=== PATIENT | female | born 1990 | race Caucasian/White ===

== ENCOUNTER 2016-09-18 20:20 | Emergency (ER) | payer MEDICAID ==
--- NOTE | 2016-09-18 21:05 | EDM.PDOC ---
ED HISTORY OF PRESENT ILLNESS - General Chief Complaint: Syncope Stated Complaint: MEDICAL VIA [facility] Time Seen by Provider: 09/18/16 21:05 Source: Reports: Patient, Family History Limitations: Reports: No limitations - History of Present Illness INITIAL COMMENTS - FREE TEXT/NARRATIVE: pt was at the [facility] rest[facility]ant and she was standing and ordering and she passed out. She had not drank alot of fluids earlier in the day. She had not had the flu or FEVER EARLIER. Timing/Duration: Reports: Hour(s): Location, General: Reports: generalized, other ( pT PASSED OUT AT THE [employer]. 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: Neurological History: Reports: Headaches, chronic, Vertigo Psychiatric History: Reports: Anxiety, Panic attack Hematologic History: Reports: Anemia - Infectious Disease History Infectious Disease History: Reports: Chicken pox - Past Surgical History HEENT Surgical History: Reports: Myringotomy w tube(s) Female Surgical History: Reports: Breast biopsy, section Social & Family History - Tobacco Use Smoking Status *Q: Current Every Day Smoker Years of Tobacco use: 10 Packs/Tins Daily: 1 Used Tobacco, but Quit: No Second Hand Smoke Exposure: Yes - Caffeine Use Caffeine Use: Reports: Coffee - Alcohol Use Days Per Week of Alcohol Use: 0 Number of Drinks Per Day: 0 Total Drinks Per Week: 0 Date of Last Drink: 09/17/16 - Recreational Drug Use Recreational Drug Use: Yes Drug Use in Last 12 Months: Yes Recreational Drug Type: Reports: Marijuana/Hashish Recreational Drug Use Frequency: Monthly ED ROS GENERAL - Review of Systems Review Of Systems: See Below Constitutional: Reports: no symptoms HEENT: Reports: No symptoms Respiratory: Reports: no symptoms Cardiovascular: Reports: No symptoms Endocrine: Reports: no symptoms GI/Abdominal: Reports: No symptoms : Reports: no symptoms Musculoskeletal: Reports: no symptoms Skin: Reports: no symptoms Neurological: Reports: syncope Psychiatric: Reports: Anxiety ED EXAM, GENERAL - Physical Exam Exam: See Below Free Text/Narrative:: pt arrived with a history of being at a returant and while she was standinding to order she passed out. She had not ate or drank much during the day. Exam Limited By: No limitations General Appearance: alert, no apparent distress, anxious, other (pupils were equal and reactive. ) Ears: normal TMs Nose: normal inspection Throat/Mouth: Normal inspection Head: atraumatic Neck: normal inspection Respiratory/Chest: no respiratory distress Cardiovascular: regular rate, rhythm GI/Abdominal: soft, non tender Rectal (Female) Exam: Deferred Back Exam: normal inspection Extremities: normal inspection Neurological: alert, oriented, normal cognition, other (all limbs of normal strength. ) Course - Vital Signs Last Recorded V/S: Last Vital Signs Temp 37.3 C 09/18/16 21:20 Pulse 81 09/18/16 22:00 Resp 16 09/18/16 22:00 BP 106/63 09/18/16 22:00 Pulse Ox 98 09/18/16 22:00 Orthostatic Blood Pressure [ 117/69 Standing] Orthostatic Blood Pressure [ 112/58 Sitting] Orthostatic Blood Pressure [ 122/78 Supine] - Orders/Labs/Meds Orders: Active Orders 24 hr Category Date Time Status Cardiac Monitoring [RC] .As Directed Care 09/18/16 21:04 Active EKG Documentation Completion [RC] ASDIRECTED Care 09/18/16 21:02 Active Orthostatic Vital Signs [RC] ASDIRECTED Care 09/18/16 21:04 Active CULTURE URINE [RM] Stat Lab 09/18/16 22:03 Received EKG 12 Lead [EK] Routine Ther 09/18/16 21:02 Ordered Labs: Laboratory Tests 09/18/16 09/18/16 09/18/16 Range/Units 21:05 21:05 21:17 WBC 7.9 (4.5-11.0) K/uL RBC 4.73 (3.30-5.50) M/uL Hgb 12.4 D (12.0-15.0) g/dL Hct 37.2 (36.0-48.0) % MCV 79 L (80-98) fL MCH 26 L (27-31) pg MCHC 33 (32-36) % Plt Count 373 (150-400) K/uL Neut % (Auto) 51 (36-66) % Lymph % (Auto) 39 (24-44) % [place] % (Auto) 5 (2-6) % Eos % (Auto) 3 (2-4) % Baso % (Auto) 2 H (0-1) % Sodium 137 L (140-148) mmol/L Potassium 3.8 (3.6-5.2) mmol/L Chloride 104 (100-108) mmol/L Carbon Dioxide 26 (21-32) mmol/L Anion Gap 10.8 (5.0-14.0) mmol/L BUN 18 (7-18) mg/dL Creatinine 0.9 (0.6-1.0) mg/dL Est Cr Clr Drug Dosing 87.90 mL/min Estimated GFR (MDRD) > 60 (>60) Glucose 140 H (74-106) mg/dL Calcium 8.4 L (8.5-10.1) mg/dL Total Bilirubin 0.2 (0.2-1.0) mg/dL AST 14 L (15-37) U/L ALT 37 (12-78) U/L Alkaline Phosphatase 60 (46-116) U/L Total Protein 7.1 (6.4-8.2) g/dL Albumin 3.9 (3.4-5.0) g/dL Globulin 3.2 (2.3-3.5) g/dL Albumin/Globulin Ratio 1.2 (1.2-2.2) Lipase 138 (73-393) U/L Urine Color Urine Appearance Urine pH (4.5-8.0) Ur Specific Blanchard (1.008-1.030) Urine Protein (NEGATIVE) mg/dL Urine Glucose (UA) (NEGATIVE) mg/dL Urine Ketones (NEGATIVE) mg/dL Urine Occult Blood (NEGATIVE) Urine Nitrite (NEGATIVE) Urine Bilirubin (NEGATIVE) Urine Urobilinogen (NORMAL) mg/dL Ur Leukocyte Esterase (NEGATIVE) Urine RBC (0-5) Urine WBC (0-5) Ur Epithelial Cells Amorphous Sediment Urine Bacteria Urine Mucus Urine HCG, Qual Urine Opiates Screen (NEGATIVE) Ur Oxycodone Screen (NEGATIVE) Urine Methadone Screen (NEGATIVE) Ur Propoxyphene Screen (NEGATIVE) Ur Barbiturates Screen (NEGATIVE) Ur Tricyclics Screen (NEGATIVE) Ur Phencyclidine Scrn (NEGATIVE) Ur Amphetamine Screen (NEGATIVE) U Methamphetamines Scrn (NEGATIVE) Urine MDMA Screen (NEGATIVE) U Benzodiazepines Scrn (NEGATIVE) U Cocaine Metab Screen (NEGATIVE) U Marijuana (THC) Screen (NEGATIVE) 09/18/16 09/18/16 09/18/16 Range/Units 21:22 22:03 22:03 WBC (4.5-11.0) K/uL RBC (3.30-5.50) M/uL Hgb (12.0-15.0) g/dL Hct (36.0-48.0) % MCV (80-98) fL MCH (27-31) pg MCHC (32-36) % Plt Count (150-400) K/uL Neut % (Auto) (36-66) % Lymph % (Auto) (24-44) % [place] % (Auto) (2-6) % Eos % (Auto) (2-4) % Baso % (Auto) (0-1) % Sodium (140-148) mmol/L Potassium (3.6-5.2) mmol/L Chloride (100-108) mmol/L Carbon Dioxide (21-32) mmol/L Anion Gap (5.0-14.0) mmol/L BUN (7-18) mg/dL Creatinine (0.6-1.0) mg/dL Est Cr Clr Drug Dosing mL/min Estimated GFR (MDRD) (>60) Glucose (74-106) mg/dL Calcium (8.5-10.1) mg/dL Total Bilirubin (0.2-1.0) mg/dL AST (15-37) U/L ALT (12-78) U/L Alkaline Phosphatase (46-116) U/L Total Protein (6.4-8.2) g/dL Albumin (3.4-5.0) g/dL Globulin (2.3-3.5) g/dL Albumin/Globulin Ratio (1.2-2.2) Lipase (73-393) U/L Urine Color Yellow Urine Appearance Cloudy Urine pH 5.0 (4.5-8.0) Ur Specific Blanchard 1.025 (1.008-1.030) Urine Protein Negative (NEGATIVE) mg/dL Urine Glucose (UA) Normal (NEGATIVE) mg/dL Urine Ketones 15 H (NEGATIVE) mg/dL Urine Occult Blood Negative (NEGATIVE) Urine Nitrite Positive H (NEGATIVE) Urine Bilirubin Negative (NEGATIVE) Urine Urobilinogen Normal (NORMAL) mg/dL Ur Leukocyte Esterase Negative (NEGATIVE) Urine RBC 0-5 (0-5) Urine WBC 0-5 (0-5) Ur Epithelial Cells Few Amorphous Sediment Not seen Urine Bacteria Many Urine Mucus Not seen Urine HCG, Qual Negative Urine Opiates Screen Negative (NEGATIVE) Ur Oxycodone Screen Negative (NEGATIVE) Urine Methadone Screen Negative (NEGATIVE) Ur Propoxyphene Screen Negative (NEGATIVE) Ur Barbiturates Screen Negative (NEGATIVE) Ur Tricyclics Screen Negative (NEGATIVE) Ur Phencyclidine Scrn Negative (NEGATIVE) Ur Amphetamine Screen Negative (NEGATIVE) U Methamphetamines Scrn Negative (NEGATIVE) Urine MDMA Screen Negative (NEGATIVE) U Benzodiazepines Scrn Negative (NEGATIVE) U Cocaine Metab Screen Negative (NEGATIVE) U Marijuana (THC) Screen Positive H (NEGATIVE) Meds: Medications Discontinued Medications Generic Name Dose Route Start Last Admin Trade Name Freq PRN Reason Stop Dose Admin Sodium Chloride 1,000 mls @ 99,968 mls/hr 09/18/16 21:15 Normal Saline IV ASDIRECTED RADHA Sodium Chloride 1,000 mls @ 999 mls/hr 09/18/16 21:30 09/18/16 21:27 Normal Saline IV 999 mls/hr ASDIRECTED RADHA Administration Sodium Chloride 1,000 mls @ 999 mls/hr 09/18/16 22:15 09/18/16 22:35 Normal Saline IV 999 mls/hr ASDIRECTED RADHA Administration Levofloxacin/Dextrose 500 mg/ 100 mls @ 100 mls/hr 09/18/16 22:16 09/18/16 22 :30 Premix IV 09/18/16 23:15 100 mls/hr ONETIME ONE Administration - Re-Assessments/Exams Free Text/Narrative Re-Assessment/Exam: 09/18/16 22:19 PT APPEARED TO BE DEHYDRATED. hER BP WAS ON THE LOW SIDE. hER EKG LOOKS NORMAL. hER DRUG SCREEN SHOW MARJAUNA BUT NO OTHER DRUGS. hER LAB WORKED SHOWED A PROBABLE KIDNEY INFECTION. a CULTURE WAS SET UP. Departure - Departure Time of Disposition: 22:00 Disposition: Home, Self-Care 01 Condition: fair Clinical Impression: Kidney infection, Dehydration Instructions: Pyelonephritis, Adult, [id number], Dehydration, Adult, Easy-to- Read Referrals: PCP,None [Primary Care Provider] - Forms: ED Department Discharge Care Plan Goals: pUSH FLUIDS, CIPRO 500MG BID, LOW ACTIVITY FOR THE NEXT 24 HOURS. - My Orders Last 24 Hours: My Active Orders 09/18/16 21:02 EKG Documentation Completion [RC] ASDIRECTED EKG 12 Lead [EK] Routine 09/18/16 21:04 Cardiac Monitoring [RC] .As Directed Orthostatic Vital Signs [RC] ASDIRECTED 09/18/16 22:03 CULTURE URINE [RM] Stat - Assessment/Plan Last 24 Hours: My Active Orders 09/18/16 21:02 EKG Documentation Completion [RC] ASDIRECTED EKG 12 Lead [EK] Routine 09/18/16 21:04 Cardiac Monitoring [RC] .As Directed Orthostatic Vital Signs [RC] ASDIRECTED 09/18/16 22:03 CULTURE URINE [RM] Stat
[2016-09-18] MEDS ORDERED: Sodium Chloride 0.9% 1,000 ML IV SCH ×3 (21:15→22:15)
[2016-09-18 22:02] VITALS: BP 106/63
[2016-09-18] MEDS ORDERED: Levofloxacin/Dextrose 5%-Water 500 MG in Premix Bag 1 BAG IV ONE (22:16)
== END 2016-09-18 23:40 | disposition home or self-care (01) ==
LOC: JP.ED 20:20
DX: E86.0 Dehydration (principal); N15.9 Renal tubulo-interstitial disease, unspecified; F17.210 Nicotine dependence, cigarettes, uncomplicated
CPT/HCPCS: 36415; 80053; 80305; 81001; 81025; 83690; 85025; 87086; 87088; 87186; 93005; 93010; 96361; 96365; 99284; J1956; J7040